=== PATIENT | female | born 1980 | race Caucasian/White ===

== ENCOUNTER 2017-07-27 16:11 | Emergency (ER) | payer MEDICAID ==
[~2017-07-27] VITALS: Ht 170.2 cm; Wt 93.0 kg
[2017-07-27 16:18] VITALS: BP 133/84
[2017-07-27] MEDS ORDERED: NYST30CR2 TP (16:28)
[2017-07-27] MEDS ORDERED: CEPH500C5 PO (16:28)
== END 2017-07-27 16:51 | disposition home or self-care (01) ==
LOC: ER 16:13
DX: L03.032 Cellulitis of left toe (principal); B35.3 Tinea pedis; Z88.0 Allergy status to penicillin
CPT/HCPCS: 99283

== ENCOUNTER 2018-07-25 05:41 | Day surgery (SDC) | payer MEDICAID ==
[2018-07-23 15:45] LABS: BASOPHILS % (AUTO) 0.6 % (0-1); EOSINOPHILS # (AUTO) 0.3 X10'3 (0-0.9); EOSINOPHILS % (AUTO) 3.4 % (0-6); LYMPHOCYTES # (AUTO) 2.7 X10'3 (1.1-4.8); LYMPHOCYTES % (AUTO) 33.9 % (21-51); MEAN CORPUSCULAR HEMOGLOBIN 31.5 PG (27.0-31.0); MEAN CORPUSCULAR VOLUME 92.6 FL (78-98); MEAN PLATELET VOLUME 8.4 FL (7.4-10.4); MONOCYTES # (AUTO) 0.6 X10'3 (0-0.9); MONOCYTES % (AUTO) 7.8 % (2-12); NEUTROPHILS # (AUTO) 4.3 X10'3 (1.8-7.7); NEUTROPHILS % (AUTO) 54.3 % (42-75); PRE OP HEMATOCRIT 41.6 % (35.0-45.0); PRE OP HEMOGLOBIN 14.1 g/dL (12.0-16.0); PRE OP PLATELET COUNT 264 X10'3 (140-440); RED BLOOD COUNT 4.49 X10'6 (4.20-5.60); RED CELL DISTRIBUTION WIDTH 13.1 % (11.5-14.5)
[2018-07-23 16:11] LABS: HCG SERUM QL NEGATIVE
[2018-07-23 16:13] LABS: ALANINE AMINOTRANSFERASE 26 U/L (12-78); ALBUMIN 3.8 G/DL (3.4-5.0); ALBUMIN/GLOBULIN RATIO 1.1 (1.1-1.5); ALKALINE PHOSPHATASE 54 IU/L (46-116); ANION GAP 5 (8-16); ASPARTATE AMINO TRANSFERASE 13 U/L (10-37); BILIRUBIN,TOTAL 0.4 MG/DL (0.1-1.0); BLOOD UREA NITROGEN 17 MG/DL (7-18); BUN/CREATININE RATIO 25.4 (6.6-38.0); CALCIUM 8.7 MG/DL (8.5-10.1); CHLORIDE 105 MMOL/L (99-107); CREATININE 0.67 MG/DL (0.40-0.90); GLUCOSE 79 MG/DL (70-104); POTASSIUM 3.9 MMOL/L (3.5-5.1); SODIUM 138 MMOL/L (135-145); TOTAL CARBON DIOXIDE 28.1 MMOL/L (24-32); TOTAL PROTEIN 7.3 G/DL (6.4-8.2); eGFR > 90 ML/MIN
[2018-07-25] VITALS (9 sets, daily range): BP systolic 121–163; BP diastolic 71–106
[~2018-07-25] VITALS: Ht 172.7 cm; Wt 100.0 kg
[~2018-07-25 05:41] MED LIST: LISI1TAB9 PO; albuterol 2.5 MG/3 ML nebule NEB ONE; famotidine 20mg tablet PO ONE; ringers solution, lacted 1,000 ML IV SCH
[2018-07-25] MEDS ORDERED: fentaNYL/PF 50MCG/1 ML 2ML syringe ONE ×2 (07:30→08:23)
[2018-07-25] MEDS ORDERED: midazolam 2 mg/2 ml injection ONE (07:30)
--- NOTE | 2018-07-25 08:35 | NUR ---
Received from OR via BED , accompanied by Anesthesiologist DR RITTER and report given by Anesthesiolgist. PATIENT WAKING UP, DENIES, V/S WNL, NEUROVASCULAR CHECKS INTACT, 20G PIV LUE, SCD ON, DEMABONDED TO LAP SIGHTS OF ABDOMEN AND WITH PERIPAD WITH SCANT DRAINAGE CDI.
[2018-07-25] MEDS ORDERED: LIDOcaine 2% (20mg/ml) 5ml vial ONE (08:43)
[2018-07-25] MEDS ORDERED: hydrALAZINE 20mg/ml inj. IV ONE (08:43)
[2018-07-25] MEDS ORDERED: dexamethasone sod phosphate 4mg/ml inj. ONE (08:43)
[2018-07-25] MEDS ORDERED: labetalol 20mg/4ml (5mg/ml) syringe IV ONE (08:43)
[2018-07-25] MEDS ORDERED: neostigmine methylsulfate 1 MG/ML 10ml vial ONE (08:43)
[2018-07-25] MEDS ORDERED: glycopyrrolate 0.2mg/ml inj ONE (08:43)
[2018-07-25] MEDS ORDERED: ondansetron/PF 4mg/2ml inj ONE (08:43)
[2018-07-25] MEDS ORDERED: rocuronium 10mg/ml inj IV ONE (08:43)
[2018-07-25] MEDS ORDERED: propofol inj 20 ML IV ONE (08:43)
[2018-07-25] MEDS ORDERED: meperidine/PF 25mg/ml syringe ONE (08:44)
[2018-07-25] MEDS ORDERED: ringers solution, lacted 1,000 ML IV SCH (08:48)
[2018-07-25] MEDS ORDERED: ondansetron/PF 4mg/2ml inj IV PRN (08:50)
[2018-07-25] MEDS ORDERED: meperidine/PF 25mg/ml syringe IV PRN ×3 (08:50)
[2018-07-25] MEDS ORDERED: morphine 4 MG/ML inj SYRINge IV PRN ×2 (08:50)
[2018-07-25] MEDS ORDERED: proCHLORperazine 10 MG/2 ml inj IV PRN (08:50)
--- NOTE | 2018-07-25 09:35 | NUR ---
PATIENT A&OX4, DENIES PAIN, V/S WNL, NEUROVASCULAR CHECKS INTACT, 20G PIV LUE D/C, SCD OFF, DERMABONDED TO LAP SIGHTS OF ABDOMEN AND WITH PERIPAD WITH SCANT DRAINAGE CDI.I HAVE REVIEWED D/C INSTRUCTIONS WITH PATIENT AND FAMILY AND THEY HAVE VERBALIZED UNDERSTANDING. PATIENT D/C HOME WITH FAMILY TO TRANSPORT AND ALL BELONGINGS..
== END 2018-07-25 09:35 | disposition home or self-care (01) ==
LOC: PAS 05:41
PROVIDERS: ATTEND Obstetrics & Gynecology
DX: Z30.2 Encounter for sterilization (principal); I10 Essential (primary) hypertension; F17.210 Nicotine dependence, cigarettes, uncomplicated; F43.10 Post-traumatic stress disorder, unspecified; Z88.0 Allergy status to penicillin; Z88.8 Allergy status to other drugs, medicaments and biological substances; Z79.899 Other long term (current) drug therapy
CPT/HCPCS: 36415; 58670; 80053; 84703; 85025; 93005; J0360; J1100; J2001; J2175; J2250; J2405; J2704; J2710; J3010; J7120; A7000; J3490

== ENCOUNTER 2022-07-26 16:27 | Emergency (ER) | payer MEDICAID ==
[~2022-07-26] VITALS: Ht 170.2 cm; Wt 100.0 kg
[~2022-07-26 16:27] MED LIST changes: +LISI1TAB49 PO; -LISI1TAB9 PO; -albuterol 2.5 MG/3 ML nebule NEB ONE; -famotidine 20mg tablet PO ONE; -ringers solution, lacted 1,000 ML IV SCH
[2022-07-26 17:04] VITALS: BP 131/85
[2022-07-26] MEDS ORDERED: PRED20TA PO (17:19)
[2022-07-26] MEDS ORDERED: KEN0.1O TP (17:19)
[2022-07-26] MEDS ORDERED: triamcinolone acetonide 40mg/ml inj IM ONE (17:20)
== END 2022-07-26 17:50 | disposition home or self-care (01) ==
LOC: ER 16:29
DX: L23.7 Allergic contact dermatitis due to plants, except food (principal); Z88.0 Allergy status to penicillin; Z88.8 Allergy status to other drugs, medicaments and biological substances; Z79.899 Other long term (current) drug therapy
CPT/HCPCS: 96372; 99283; J3301

== ENCOUNTER 2023-05-22 12:16 | Emergency (ER) | payer MEDICAID ==
[~2023-05-22] VITALS: Ht 170.2 cm; Wt 101.8 kg
[2023-05-22 12:34] VITALS: BP 139/80; PULSE 74; O2SAT 98
[2023-05-22] MEDS ORDERED: ketorolac trometh. 30mg/ml inj. IM ONE (13:35)
[2023-05-22] MEDS: ketorolac tromethamine 15mg/ml inj. IM ONE (13:51)
[2023-05-22] MEDS: orphenadrine citrate 60mg/2ml inj. IM ONE (13:55)
[2023-05-22 14:07] VITALS: RESP 16
[2023-05-22] MEDS ORDERED: NAPR-56 PO (14:25)
[2023-05-22] MEDS ORDERED: LIDO700A47 TOP (14:25)
[2023-05-22] MEDS ORDERED: CYCL-394 PO (14:25)
[2023-05-22 14:37] VITALS: TEMP 98
== END 2023-05-22 14:40 | disposition home or self-care (01) ==
LOC: ER 12:17
DX: M54.50 Low back pain, unspecified (principal); Z88.0 Allergy status to penicillin; Z88.8 Allergy status to other drugs, medicaments and biological substances; Z79.899 Other long term (current) drug therapy
CPT/HCPCS: 72100; 96372; 99283; J1885

== ENCOUNTER 2023-06-21 10:36 | Outpatient (CLI) | payer MEDICAID ==
[~2023-06-21 10:36] MED LIST changes: +LIDO700A47 TOP; +NAPR-56 PO
== END 2023-06-21 23:59 | disposition home or self-care (01) ==
LOC: MRI 10:36
PROVIDERS: ATTEND Family Medicine
DX: M51.27 Other intervertebral disc displacement, lumbosacral region (principal); M47.817 Spondylosis without myelopathy or radiculopathy, lumbosacral region; M48.07 Spinal stenosis, lumbosacral region; M43.16 Spondylolisthesis, lumbar region
CPT/HCPCS: 72148

== ENCOUNTER 2023-08-11 22:08 | Emergency (ER) | payer MEDICAID ==
[~2023-08-11] VITALS: Ht 170.2 cm; Wt 90.9 kg
[2023-08-11 23:12] LABS: URINE HCG NEGATIVE (NEG)
[2023-08-11 23:13] LABS: BASOPHILS % (AUTO) 0.4 % (0-1); EOSINOPHILS # (AUTO) 0.1 X10'3 (0-0.9); HEMATOCRIT 42.2 % (35.0-45.0); HEMOGLOBIN 14.5 g/dl (12.0-16.0); LYMPHOCYTES # (AUTO) 1.6 X10'3 (1.1-4.8); LYMPHOCYTES % (AUTO) 23.1 % (21-51); MEAN CORPUSCULAR HEMOGLOBIN 31.6 PG (27.0-31.0); MEAN CORPUSCULAR HGB CONC 34.4 g/dL (33.0-36.5); MEAN CORPUSCULAR VOLUME 91.7 FL (78-98); MEAN PLATELET VOLUME 8.5 FL (7.4-10.4); MONOCYTES # (AUTO) 0.4 X10'3 (0-0.9); MONOCYTES % (AUTO) 5.6 % (2-12); NEUTROPHILS # (AUTO) 4.9 X10'3 (1.8-7.7); NEUTROPHILS % (AUTO) 69.9 % (42-75); PLATELET COUNT 245 X10'3 (140-440); RED BLOOD COUNT 4.61 X10'6 (4.20-5.60); RED CELL DISTRIBUTION WIDTH 13.3 % (11.5-14.5); WHITE BLOOD COUNT 6.9 X10'3 (4.5-11.0)
[2023-08-11 23:16] LABS: BILIRUBIN,URINE NEGATIVE (Neg); CLARITY,URINE SLIGHTLY CLOUDY (Clear); COLOR,URINE YELLOW (Yellow); GLUCOSE, URINE NEGATIVE (Neg); KETONES,URINE NEGATIVE (Neg); LEUKOCYTE ESTERASE ,URINE NEGATIVE (Neg); NITRITES, URINE NEGATIVE (Neg); OCCULT BLOOD,URINE NEGATIVE (Neg); PROTEIN,URINE TRACE mg/dl (Neg)
[2023-08-11 23:17] LABS: UA COLLECTION TYPE CLN CATCH MIDSTREAM
[2023-08-11 23:23] LABS: ALANINE AMINOTRANSFERASE 22 U/L (12-78); ALBUMIN 3.9 G/DL (3.4-5.0); ALBUMIN/GLOBULIN RATIO 1.2 (1.1-1.5); ALKALINE PHOSPHATASE 43 IU/L (46-116); ANION GAP 11 (8-16); ASPARTATE AMINO TRANSFERASE 8 U/L (10-37); BILIRUBIN,TOTAL 0.7 MG/DL (0.1-1.0); BLOOD UREA NITROGEN 11 MG/DL (7-18); BUN/CREATININE RATIO 15.5 (10.0-20.0); CALCIUM 8.5 MG/DL (8.5-10.1); CHLORIDE 99 MMOL/L (99-107); CREATININE 0.71 MG/DL (0.40-0.90); GLUCOSE 94 MG/DL (70-104); LIPASE 17 U/L (16-77); POTASSIUM 3.5 MMOL/L (3.5-5.1); SODIUM 135 MMOL/L (135-145); TOTAL CARBON DIOXIDE 25.2 MMOL/L (24-32); TOTAL PROTEIN 7.2 G/DL (6.4-8.2); eCRCL 97 ML/MIN; eGFR 89 ML/MIN
[2023-08-11] MEDS: ondansetron/PF 4mg/2ml inj IV ONE (23:25)
[2023-08-11] MEDS: normal saline 1000ML IV soln IVB ONE (23:25)
[2023-08-11 23:30] LABS: ETHANOL < 10 MG/DL (<10)
[2023-08-11 23:36] LABS: BACTERIA,URINE FEW /HPF (Neg); RBC,URINE NONE SEEN /HPF (0-2); WBC,URINE 0-4 /HPF (0-4)
[2023-08-11 23:37] LABS: MUCUS STRANDS MANY /LPF (Neg); SQUAMOUS EPITHELIAL CELL,UR FEW /LPF (FEW)
[2023-08-12] MEDS ORDERED: ONDA8TAB13 PO (00:17)
[2023-08-12 00:38] VITALS: BP 111/75; PULSE 66; RESP 14; TEMP 98.4; O2SAT 96
== END 2023-08-12 00:40 | disposition home or self-care (01) ==
LOC: ER 22:09
DX: R11.2 Nausea with vomiting, unspecified (principal); Z20.822 Contact with and (suspected) exposure to COVID-19; I10 Essential (primary) hypertension; E78.00 Pure hypercholesterolemia, unspecified; Z88.0 Allergy status to penicillin; Z88.8 Allergy status to other drugs, medicaments and biological substances; Z79.899 Other long term (current) drug therapy
CPT/HCPCS: 36415; 80053; 80320; 81001; 81025; 83690; 85025; 87502; 87503; 87811; 96374; 99283; J2405; J7030; 96361

== ENCOUNTER 2023-09-20 22:01 | Inpatient (IN) | payer MEDICAID ==
[~2023-09-20] VITALS: Ht 170.2 cm; Wt 90.9 kg
[~2023-09-20 22:01] MED LIST changes: +ONDA-245 PO
[2023-09-20 22:51] LABS: BASOPHILS # (AUTO) 0.1 X10'3 (0-0.2); BASOPHILS % (AUTO) 0.6 % (0-1); EOSINOPHILS # (AUTO) 0.3 X10'3 (0-0.9); EOSINOPHILS % (AUTO) 2.4 % (0-6); HEMATOCRIT 43.8 % (35.0-45.0); HEMOGLOBIN 14.6 g/dl (12.0-16.0); LYMPHOCYTES # (AUTO) 2.3 X10'3 (1.1-4.8); LYMPHOCYTES % (AUTO) 20.5 % (21-51); MEAN CORPUSCULAR HEMOGLOBIN 31.1 PG (27.0-31.0); MEAN CORPUSCULAR HGB CONC 33.3 g/dL (33.0-36.5); MEAN CORPUSCULAR VOLUME 93.4 FL (78-98); MEAN PLATELET VOLUME 8.2 FL (7.4-10.4); MONOCYTES # (AUTO) 0.6 X10'3 (0-0.9); MONOCYTES % (AUTO) 5.4 % (2-12); NEUTROPHILS # (AUTO) 8.2 X10'3 (1.8-7.7); NEUTROPHILS % (AUTO) 71.1 % (42-75); PLATELET COUNT 293 X10'3 (140-440); RED BLOOD COUNT 4.69 X10'6 (4.20-5.60); RED CELL DISTRIBUTION WIDTH 14.2 % (11.5-14.5); WHITE BLOOD COUNT 11.5 X10'3 (4.5-11.0)
[2023-09-20 22:57] LABS: BILIRUBIN,URINE MODERATE (Neg); CLARITY,URINE CLEAR (Clear); GLUCOSE, URINE 100 mg/dl (Neg); KETONES,URINE TRACE mg/dl (Neg); LEUKOCYTE ESTERASE ,URINE NEGATIVE (Neg); OCCULT BLOOD,URINE NEGATIVE (Neg); PH,URINE 5.5 (4.8-8.0); PROTEIN,URINE TRACE mg/dl (Neg)
[2023-09-20 23:03] LABS: ALANINE AMINOTRANSFERASE 285 U/L (12-78); ALKALINE PHOSPHATASE 196 IU/L (46-116); ANION GAP 11 (8-16); ASPARTATE AMINO TRANSFERASE 207 U/L (10-37); BILIRUBIN,TOTAL 2.6 MG/DL (0.1-1.0); BLOOD UREA NITROGEN 11 MG/DL (7-18); CALCIUM 9.5 MG/DL (8.5-10.1); CHLORIDE 100 MMOL/L (99-107); CREATININE 0.92 MG/DL (0.40-0.90); GLUCOSE 112 MG/DL (70-104); LIPASE 283 U/L (16-77); POTASSIUM 3.8 MMOL/L (3.5-5.1); SODIUM 137 MMOL/L (135-145); TOTAL CARBON DIOXIDE 26.1 MMOL/L (24-32); TOTAL PROTEIN 8.1 G/DL (6.4-8.2); eCRCL 75 ML/MIN; eGFR 66 ML/MIN
[2023-09-20 23:07] LABS: BILIRUBIN,DIRECT 1.4 MG/DL (0-0.3)
[2023-09-20 23:19] LABS: COLOR,URINE DARK YELLOW (Yellow); NITRITES, URINE NEGATIVE (Neg); UA COLLECTION TYPE NON-SPECIFIED
[2023-09-20 23:21] LABS: BACTERIA,URINE FEW /HPF (Neg); CAL OXALATE CRYSTALS 2+ /HPF (NEGATIVE); RBC,URINE 0-2 /HPF (0-2); SQUAMOUS EPITHELIAL CELL,UR FEW /LPF (FEW); WBC,URINE 0-4 /HPF (0-4)
[2023-09-20] MEDS ORDERED: SEMA1PEN3 SUBCUT (23:40)
[2023-09-20] MEDS: morphine 2 MG/ML inj. syringe IV ONE (23:41)
[2023-09-20] MEDS: normal saline 1000ML IV soln IVB ONE (23:42)
[2023-09-20] MEDS: ondansetron/PF 4mg/2ml inj IV ONE (23:51)
[2023-09-21] MEDS ORDERED: magnesium Cl slow-release 64mg tablet PO PRN
[2023-09-21] MEDS ORDERED: acetaminophen 325mg tablet PO PRN
[2023-09-21] MEDS ORDERED: magnesium sulf-water 2g/50mL 50 ML IV PRN
[2023-09-21] MEDS ORDERED: magnesium sulf-water 4G/100mL 100 ML IV PRN
[2023-09-21] MEDS ORDERED: ondansetron/PF 4mg/2ml inj IV PRN
[2023-09-21] MEDS ORDERED: mag hydrox/Alum hydrox/simeth 30ml oral suspension PO PRN
[2023-09-21] MEDS ORDERED: potassium Cl 40MEQ/1/2NS 520ml 520 ML IV PRN
[2023-09-21] MEDS ORDERED: potassium Cl 20 mEq SR tablet PO PRN ×2
[2023-09-21] MEDS: ringers solution, lacted 1,000 ML IV ONE (00:58)
[2023-09-21] MEDS: ringers solution, lacted 1,000 ML IV SCH (00:59)
[2023-09-21 01:06] LABS: AMYLASE 83 U/L (25-115); C-REACTIVE PROTEIN 1.69 MG/DL (0.0-0.5); CHOL/HDL RATIO 3.4 (0.00-4.99); CHOLESTEROL 162 MG/DL (0-200); HDL CHOLESTEROL 48 MG/DL (35-60); LDL CHOLESTEROL 86 MG/DL (50-100); TRIGLYCERIDES 93 MG/DL (20-135)
[2023-09-21] MEDS: metoclopramide 5 mg/ml inj IV SCH (02:00)
[2023-09-21] MEDS: morphine 2 MG/ML inj. syringe IV SCH (02:00)
[2023-09-21 02:44] LABS: MAGNESIUM 1.8 MG/DL (1.5-2.4); POTASSIUM 4.2 MMOL/L (3.5-5.1)
[2023-09-21 05:00] VITALS: BP 122/78; PULSE 58; RESP 16; TEMP 97.8; O2SAT 97
[2023-09-21] MEDS ORDERED: ATOR20TA66 PO (06:00)
[2023-09-21] MEDS: K and/or MAG REPLACEMENT MC SCH (07:58)
[2023-09-21] MEDS: docusate sod 100mg capsule PO SCH (07:59)
[2023-09-21] MEDS: HYDROchlorothiazide 12.5mg capsule PO SCH (08:00)
[2023-09-21] MEDS: lisinopril 10 MG tablet PO SCH (08:00)
[2023-09-21] MEDS: LIDOcaine 5% patch TP SCH (08:00)
[2023-09-21 08:29] LABS: BASOPHILS % (AUTO) 0.5 % (0-1); EOSINOPHILS # (AUTO) 0.3 X10'3 (0-0.9); EOSINOPHILS % (AUTO) 4.4 % (0-6); HEMATOCRIT 37.6 % (35.0-45.0); HEMOGLOBIN 12.7 g/dl (12.0-16.0); LYMPHOCYTES # (AUTO) 2.3 X10'3 (1.1-4.8); LYMPHOCYTES % (AUTO) 32.5 % (21-51); MEAN CORPUSCULAR HEMOGLOBIN 31.3 PG (27.0-31.0); MEAN CORPUSCULAR HGB CONC 33.6 g/dL (33.0-36.5); MEAN CORPUSCULAR VOLUME 92.9 FL (78-98); MEAN PLATELET VOLUME 8.2 FL (7.4-10.4); MONOCYTES # (AUTO) 0.5 X10'3 (0-0.9); MONOCYTES % (AUTO) 7.3 % (2-12); NEUTROPHILS # (AUTO) 3.9 X10'3 (1.8-7.7); NEUTROPHILS % (AUTO) 55.3 % (42-75); PLATELET COUNT 243 X10'3 (140-440); RED BLOOD COUNT 4.05 X10'6 (4.20-5.60); RED CELL DISTRIBUTION WIDTH 13.7 % (11.5-14.5); WHITE BLOOD COUNT 7.1 X10'3 (4.5-11.0)
[2023-09-21 08:39] LABS: ALANINE AMINOTRANSFERASE 265 U/L (12-78); ALBUMIN 3.2 G/DL (3.4-5.0); ALKALINE PHOSPHATASE 182 IU/L (46-116); ANION GAP 5 (8-16); ASPARTATE AMINO TRANSFERASE 202 U/L (10-37); BILIRUBIN,TOTAL 2.9 MG/DL (0.1-1.0); BLOOD UREA NITROGEN 8 MG/DL (7-18); BUN/CREATININE RATIO 12.7 (10.0-20.0); CALCIUM 8.7 MG/DL (8.5-10.1); CHLORIDE 105 MMOL/L (99-107); CREATININE 0.63 MG/DL (0.40-0.90); GLUCOSE 94 MG/DL (70-104); LIPASE 113 U/L (16-77); POTASSIUM 4.1 MMOL/L (3.5-5.1); SODIUM 138 MMOL/L (135-145); TOTAL CARBON DIOXIDE 28.4 MMOL/L (24-32); TOTAL PROTEIN 6.5 G/DL (6.4-8.2); eCRCL 110 ML/MIN; eGFR > 90 ML/MIN
[2023-09-21 09:00] VITALS: RESP 18; O2SAT 98
[2023-09-21 10:00] VITALS: BP 129/81; PULSE 61; RESP 18; TEMP 97.2; O2SAT 98
[2023-09-21] MEDS ORDERED: iohexol 300mg/ml 100ml inj. ONE (10:36)
[2023-09-21] MEDS ORDERED: morphine 2 MG/ML inj. syringe IV PRN (13:45)
[2023-09-21] MEDS ORDERED: metoclopramide 5 mg/ml inj IV PRN (13:45)
[2023-09-21] MEDS: levoFLOXACIN-Levaquin 750MG/D5 150 ML IV SCH (14:16)
[2023-09-21] MEDS: morphine 2 MG/ML inj. syringe IV PRN (14:53)
[2023-09-21] MEDS: metroNIDAZOLE-Flagyl 500mg/NS 100 ML IV SCH (16:30)
[2023-09-21 18:00] VITALS: BP 116/75; PULSE 58; RESP 16; TEMP 97.4; O2SAT 100
[2023-09-21 20:00] VITALS: RESP 16; O2SAT 100
[2023-09-21] MEDS: HYDROmorphone 1 mg/ml syringe IV PRN (20:09)
[2023-09-21 22:00] VITALS: BP 135/76; PULSE 60; RESP 16; TEMP 97.4; O2SAT 96
[2023-09-22] VITALS (20 sets, daily range): BP systolic 108–151; BP diastolic 47–86; PULSE 51–86; RESP 12–20; TEMP 97.1–98.4; O2SAT 90–98
[2023-09-22 05:59] LABS: BASOPHILS % (AUTO) 0.8 % (0-1); EOSINOPHILS # (AUTO) 0.3 X10'3 (0-0.9); EOSINOPHILS % (AUTO) 6.4 % (0-6); HEMATOCRIT 37.1 % (35.0-45.0); HEMOGLOBIN 12.2 g/dl (12.0-16.0); LYMPHOCYTES # (AUTO) 1.9 X10'3 (1.1-4.8); LYMPHOCYTES % (AUTO) 34.5 % (21-51); MEAN CORPUSCULAR HEMOGLOBIN 30.8 PG (27.0-31.0); MEAN CORPUSCULAR VOLUME 93.2 FL (78-98); MEAN PLATELET VOLUME 8.1 FL (7.4-10.4); MONOCYTES # (AUTO) 0.4 X10'3 (0-0.9); MONOCYTES % (AUTO) 7.1 % (2-12); NEUTROPHILS # (AUTO) 2.8 X10'3 (1.8-7.7); NEUTROPHILS % (AUTO) 51.2 % (42-75); PLATELET COUNT 236 X10'3 (140-440); RED BLOOD COUNT 3.98 X10'6 (4.20-5.60); RED CELL DISTRIBUTION WIDTH 13.6 % (11.5-14.5); WHITE BLOOD COUNT 5.5 X10'3 (4.5-11.0)
[2023-09-22 06:08] LABS: ALBUMIN 3.1 G/DL (3.4-5.0); ANION GAP 5 (8-16); BILIRUBIN,TOTAL 1.2 MG/DL (0.1-1.0); BLOOD UREA NITROGEN 5 MG/DL (7-18); BUN/CREATININE RATIO 8.9 (10.0-20.0); CALCIUM 8.6 MG/DL (8.5-10.1); CHLORIDE 103 MMOL/L (99-107); CREATININE 0.56 MG/DL (0.40-0.90); GLUCOSE 86 MG/DL (70-104); MAGNESIUM 1.6 MG/DL (1.5-2.4); POTASSIUM 3.8 MMOL/L (3.5-5.1); SODIUM 136 MMOL/L (135-145); TOTAL CARBON DIOXIDE 27.9 MMOL/L (24-32); TOTAL PROTEIN 6.4 G/DL (6.4-8.2); eCRCL 123 ML/MIN; eGFR > 90 ML/MIN
[2023-09-22 06:09] LABS: ALANINE AMINOTRANSFERASE 193 U/L (12-78); ALBUMIN/GLOBULIN RATIO 0.9 (1.1-1.5); ALKALINE PHOSPHATASE 155 IU/L (46-116); ASPARTATE AMINO TRANSFERASE 75 U/L (10-37); LIPASE 29 U/L (16-77)
[2023-09-22] MEDS ORDERED: hydrALAZINE 20mg/ml inj. IV PRN (10:00)
[2023-09-22] MEDS ORDERED: meperidine/PF 25mg/ml syringe IV PRN ×2 (10:00)
[2023-09-22] MEDS ORDERED: morphine 4 MG/ML inj SYRINge IV PRN (10:00)
[2023-09-22] MEDS ORDERED: morphine 2 MG/ML inj. syringe IV PRN (10:00)
[2023-09-22] MEDS ORDERED: ondansetron/PF 4mg/2ml inj IV PRN (10:00)
[2023-09-22] MEDS: acetaminophen 1,000mg/100ml IV 100 ML IV ONE (10:00)
[2023-09-22] MEDS ORDERED: proCHLORperazine 10 MG/2 ml inj IV PRN (10:00)
[2023-09-22] MEDS ORDERED: labetalol 20mg/4ml (5mg/ml) syringe IV PRN (10:00)
[2023-09-22] MEDS: ringers solution, lacted 1,000 ML IV SCH (10:00)
[2023-09-22] MEDS ORDERED: sevoflurane 250ml liquid IH ONE (10:01)
[2023-09-22 10:03] LABS: PREOP URINE HCG NEGATIVE (NEGATIVE)
[2023-09-22] MEDS ORDERED: midazolam 1 mg/ML 2ml injection ONE (10:11)
[2023-09-22] MEDS ORDERED: propofol inj 20 ML IV ONE (10:39)
[2023-09-22] MEDS ORDERED: rocuronium 10mg/ml inj IV ONE (10:39)
[2023-09-22] MEDS ORDERED: ondansetron/PF 4mg/2ml inj ONE (10:39)
[2023-09-22] MEDS ORDERED: ceFOXitin 1000 MG inj ONE ×2 (10:39)
[2023-09-22] MEDS ORDERED: fentaNYL /PF 50mcg/ml 5ml ampule ONE (10:39)
[2023-09-22] MEDS ORDERED: LIDOcaine 2% (20mg/ml) 5ml vial ONE (10:39)
[2023-09-22] MEDS ORDERED: dexamethasone sod phosphate 4mg/ml inj. ONE (10:39)
[2023-09-22] MEDS: BUPIVAcaine 2.5mg/ml inj 50ml vial (contains preservative) ONE (10:45)
[2023-09-22] MEDS ORDERED: labetalol 20mg/4ml (5mg/ml) syringe IV ONE (10:46)
[2023-09-22] MEDS ORDERED: glycopyrrolate 0.2mg/ml inj ONE (11:31)
[2023-09-22] MEDS ORDERED: neostigmine methylsulfate 1 MG/ML 10ml vial ONE (11:31)
[2023-09-22] MEDS: meperidine/PF 25mg/ml syringe IV PRN (11:52)
[2023-09-22] MEDS ORDERED: naloxone 0.4 mg/ml inj IV PRN (12:05)
[2023-09-22] MEDS: ketorolac trometh. 30mg/ml inj. IV ONE (12:07)
[2023-09-22] MEDS: HYDROcodone/acetaminophen 5mg/325mg tablet PO PRN (12:24)
[2023-09-22] MEDS: ketorolac trometh. 30mg/ml inj. IV PRN (16:36)
[2023-09-23 02:00] VITALS: BP 137/75; PULSE 54; RESP 14; TEMP 97.8; O2SAT 100
[2023-09-23 06:20] LABS: BASOPHILS % (AUTO) 0.1 % (0-1); EOSINOPHILS % (AUTO) 0.1 % (0-6); HEMATOCRIT 34.9 % (35.0-45.0); HEMOGLOBIN 11.7 g/dl (12.0-16.0); LYMPHOCYTES # (AUTO) 1.8 X10'3 (1.1-4.8); LYMPHOCYTES % (AUTO) 14.2 % (21-51); MEAN CORPUSCULAR HEMOGLOBIN 31.1 PG (27.0-31.0); MEAN CORPUSCULAR HGB CONC 33.5 g/dL (33.0-36.5); MEAN PLATELET VOLUME 8.4 FL (7.4-10.4); MONOCYTES # (AUTO) 0.7 X10'3 (0-0.9); MONOCYTES % (AUTO) 5.8 % (2-12); NEUTROPHILS % (AUTO) 79.8 % (42-75); PLATELET COUNT 231 X10'3 (140-440); RED BLOOD COUNT 3.75 X10'6 (4.20-5.60); RED CELL DISTRIBUTION WIDTH 13.6 % (11.5-14.5); WHITE BLOOD COUNT 12.5 X10'3 (4.5-11.0)
[2023-09-23 06:39] LABS: ALANINE AMINOTRANSFERASE 132 U/L (12-78); ALBUMIN 2.9 G/DL (3.4-5.0); ALBUMIN/GLOBULIN RATIO 0.9 (1.1-1.5); ALKALINE PHOSPHATASE 121 IU/L (46-116); ANION GAP 8 (8-16); ASPARTATE AMINO TRANSFERASE 34 U/L (10-37); BILIRUBIN,TOTAL 0.7 MG/DL (0.1-1.0); BLOOD UREA NITROGEN 5 MG/DL (7-18); BUN/CREATININE RATIO 10.9 (10.0-20.0); CALCIUM 8.7 MG/DL (8.5-10.1); CHLORIDE 102 MMOL/L (99-107); CREATININE 0.46 MG/DL (0.40-0.90); GLUCOSE 113 MG/DL (70-104); LIPASE 14 U/L (16-77); MAGNESIUM 1.5 MG/DL (1.5-2.4); POTASSIUM 3.6 MMOL/L (3.5-5.1); SODIUM 136 MMOL/L (135-145); TOTAL CARBON DIOXIDE 25.9 MMOL/L (24-32); TOTAL PROTEIN 6.1 G/DL (6.4-8.2); eCRCL 150 ML/MIN; eGFR > 90 ML/MIN
[2023-09-23] MEDS: magnesium hydroxide 30ml (MOM) UD suspension PO PRN (09:13)
[2023-09-23 09:18] VITALS: RESP 16
[2023-09-23 10:14] VITALS: BP 132/77; PULSE 63; RESP 15; TEMP 97.8; O2SAT 95
[2023-09-23 13:39] VITALS: RESP 16
[2023-09-23] MEDS ORDERED: IBUP-1985 PO ×2 (16:01→16:04)
[2023-09-23] MEDS ORDERED: LEVO750T68 PO (16:01)
[2023-09-23] MEDS ORDERED: METR-159 PO (16:01)
== END 2023-09-23 16:51 | disposition home or self-care (01) | DRG 263 ==
LOC: ER 22:02 → ED HOLD 09-21 → ORTHO 4S 09-21 04:51
PROVIDERS: ADMIT Internal Medicine Critical Care Medicine; ATTEND Family Medicine
PROC: 8E0W4CZ Robotic Assisted Procedure of Trunk Region, Percutaneous Endoscopic Approach (ICD-10-PCS; 2023-09-22)
PROC: 0FT44ZZ Resection of Gallbladder, Percutaneous Endoscopic Approach (ICD-10-PCS; principal; 2023-09-22 10:01)
DX: K85.10 Biliary acute pancreatitis without necrosis or infection (principal); E66.9 Obesity, unspecified; E78.5 Hyperlipidemia, unspecified; I10 Essential (primary) hypertension; R74.01 Elevation of levels of liver transaminase levels; Z72.0 Tobacco use; Z68.31 Body mass index [BMI] 31.0-31.9, adult
CPT/HCPCS: 36415; 74018; 74177; 74181; 76700; 80048; 80053; 80061; 80076; 81001; 81025; 82150; 82948; 83605; 83690; 83735; 84132; 85025; 86140; 87040; 87081; 87811; 93005; 99285; A4215; A4615; A4618; A6258; A7000; G0378; J0131; J0694; J1100; J1170; J1885; J1956; J2175; J2250; J2270; J2405; J2704; J2710; J3010; J3490; J7030; J7120; Q9967

== ENCOUNTER 2023-10-30 18:42 | Inpatient (IN) | payer MEDICAID ==
[~2023-10-30] VITALS: Ht 170.2 cm; Wt 91.6 kg
[~2023-10-30 18:42] MED LIST changes: +ATOR20TA66 PO; +IBUP-1985 PO; -NAPR-56 PO
[2023-10-30 19:37] LABS: BASOPHILS # (AUTO) 0.1 X10'3 (0-0.2); BASOPHILS % (AUTO) 1.1 % (0-1); EOSINOPHILS # (AUTO) 0.3 X10'3 (0-0.9); EOSINOPHILS % (AUTO) 3.4 % (0-6); HEMATOCRIT 39.4 % (35.0-45.0); HEMOGLOBIN 12.9 g/dl (12.0-16.0); LYMPHOCYTES # (AUTO) 1.9 X10'3 (1.1-4.8); LYMPHOCYTES % (AUTO) 24.6 % (21-51); MEAN CORPUSCULAR HEMOGLOBIN 30.2 PG (27.0-31.0); MEAN CORPUSCULAR HGB CONC 32.6 g/dL (33.0-36.5); MEAN CORPUSCULAR VOLUME 92.6 FL (78-98); MEAN PLATELET VOLUME 7.8 FL (7.4-10.4); MONOCYTES # (AUTO) 0.6 X10'3 (0-0.9); MONOCYTES % (AUTO) 7.8 % (2-12); NEUTROPHILS # (AUTO) 4.8 X10'3 (1.8-7.7); NEUTROPHILS % (AUTO) 63.1 % (42-75); PLATELET COUNT 354 X10'3 (140-440); RED BLOOD COUNT 4.25 X10'6 (4.20-5.60); RED CELL DISTRIBUTION WIDTH 15.3 % (11.5-14.5); WHITE BLOOD COUNT 7.5 X10'3 (4.5-11.0)
[2023-10-30 19:50] LABS: ALANINE AMINOTRANSFERASE 168 U/L (12-78); ALBUMIN 3.8 G/DL (3.4-5.0); ALKALINE PHOSPHATASE 281 IU/L (46-116); ANION GAP 9 (8-16); ASPARTATE AMINO TRANSFERASE 96 U/L (10-37); BILIRUBIN,TOTAL 3.2 MG/DL (0.1-1.0); BLOOD UREA NITROGEN 8 MG/DL (7-18); BUN/CREATININE RATIO 11.8 (10.0-20.0); CHLORIDE 104 MMOL/L (99-107); CREATININE 0.68 MG/DL (0.40-0.90); GLUCOSE 96 MG/DL (70-104); LIPASE 37 U/L (16-77); POTASSIUM 3.8 MMOL/L (3.5-5.1); SODIUM 139 MMOL/L (135-145); TOTAL CARBON DIOXIDE 26.4 MMOL/L (24-32); TOTAL PROTEIN 7.7 G/DL (6.4-8.2); eCRCL 102 ML/MIN; eGFR > 90 ML/MIN
[2023-10-30 20:15] LABS: URINE HCG NEGATIVE (NEG)
[2023-10-30 20:17] LABS: BILIRUBIN,URINE LARGE (Neg); CLARITY,URINE SLIGHTLY CLOUDY (Clear); COLOR,URINE AMBER (Yellow); GLUCOSE, URINE 100 mg/dl (Neg); KETONES,URINE NEGATIVE (Neg); LEUKOCYTE ESTERASE ,URINE NEGATIVE (Neg); OCCULT BLOOD,URINE NEGATIVE (Neg); PH,URINE 5.5 (4.8-8.0); PROTEIN,URINE NEGATIVE (Neg)
[2023-10-30 20:19] LABS: NITRITES, URINE NEGATIVE (Neg); UA COLLECTION TYPE CLN CATCH MIDSTREAM
[2023-10-30 20:30] LABS: CAL OXALATE CRYSTALS 4+ /HPF (NEGATIVE); MUCUS STRANDS MANY /LPF (Neg); SQUAMOUS EPITHELIAL CELL,UR MODERATE /LPF (FEW)
[2023-10-30 20:31] LABS: BACTERIA,URINE 1+ /HPF (Neg); RBC,URINE 0-2 /HPF (0-2); WBC,URINE 0-4 /HPF (0-4)
[2023-10-30] MEDS ORDERED: iohexol 300mg/ml 100ml inj. ONE (21:10)
[2023-10-30] MEDS: pantoprazole 40 MG vial IV ONE (21:38)
[2023-10-30] MEDS: mag hydrox/Alum hydrox/simeth 30ml oral suspension PO ONE (21:38)
[2023-10-30] MEDS: LIDOcaine 2% Viscous 15ml cup MM ONE (21:38)
[2023-10-30] MEDS: famotidine/PF 10 mg/ml inj IV ONE (21:38)
[2023-10-31] MEDS ORDERED: HYDROcodone/acetaminophen 10/325mg tab PO PRN (01:50)
[2023-10-31] MEDS: normal saline 1000ml 1,000 ML IV SCH (01:50)
[2023-10-31] MEDS ORDERED: acetaminophen 325mg tablet PO PRN ×2 (01:50)
[2023-10-31] MEDS ORDERED: magnesium sulf-water 2g/50mL 50 ML IV PRN (01:50)
[2023-10-31] MEDS ORDERED: magnesium hydroxide 30ml (MOM) UD suspension PO PRN (01:50)
[2023-10-31] MEDS ORDERED: mag hydrox/Alum hydrox/simeth 30ml oral suspension PO PRN (01:50)
[2023-10-31] MEDS ORDERED: morphine 2 MG/ML inj. syringe IV PRN (01:50)
[2023-10-31] MEDS ORDERED: potassium Cl 20 mEq SR tablet PO PRN ×2 (01:50)
[2023-10-31] MEDS ORDERED: magnesium sulf-water 4G/100mL 100 ML IV PRN (01:50)
[2023-10-31] MEDS ORDERED: potassium Cl 40MEQ/1/2NS 520ml 520 ML IV PRN (01:50)
[2023-10-31] MEDS ORDERED: magnesium Cl slow-release 64mg tablet PO PRN (01:50)
[2023-10-31] MEDS: ondansetron/PF 4mg/2ml inj IV PRN (03:19)
[2023-10-31] MEDS: CefTRIAXone/D5W-Rocephin 1gm 50 ML IV ONE (03:20)
[2023-10-31] MEDS: morphine 2 MG/ML inj. syringe IV PRN (03:20)
[2023-10-31 03:24] LABS: PROTHROMBIN TIME 10.6 SECONDS (9.0-12.0)
[2023-10-31 06:00] VITALS: BP 155/75; PULSE 56; RESP 16; TEMP 97.9; O2SAT 99
[2023-10-31] MEDS: K and/or MAG REPLACEMENT MC SCH (07:51)
[2023-10-31] MEDS: docusate sod 100mg capsule PO SCH (07:51)
[2023-10-31] MEDS: pantoprazole 40 MG vial IV SCH (07:51)
[2023-10-31] MEDS: CefTRIAXone/D5W-Rocephin 1gm 50 ML IV SCH (09:56)
[2023-10-31 10:00] VITALS: BP 133/79; PULSE 56; RESP 16; TEMP 97.6; O2SAT 96
[2023-10-31] MEDS: metroNIDAZOLE-Flagyl 500mg/NS 100 ML IV SCH (16:57)
[2023-10-31 18:00] VITALS: BP 153/78; PULSE 68; RESP 18; TEMP 98.5; O2SAT 99
[2023-10-31 19:54] VITALS: RESP 18; O2SAT 99
[2023-10-31] MEDS: HYDROcodone/acetaminophen 5mg/325mg tablet PO PRN (20:12)
[2023-10-31 22:00] VITALS: BP 117/46; PULSE 62; RESP 17; TEMP 96.3; O2SAT 92
[2023-10-31] MEDS: diphenhydrAMINE 25mg capsule PO ONE (22:45)
[2023-11-01] VITALS (12 sets, daily range): BP systolic 104–160; BP diastolic 60–84; PULSE 49–62; RESP 10–19; TEMP 96.8–98; O2SAT 94–98
[2023-11-01 07:03] LABS: EOSINOPHILS # (AUTO) 0.2 X10'3 (0-0.9); HEMATOCRIT 32.9 % (35.0-45.0); LYMPHOCYTES # (AUTO) 1.4 X10'3 (1.1-4.8); MEAN PLATELET VOLUME 8.1 FL (7.4-10.4); MONOCYTES # (AUTO) 0.3 X10'3 (0-0.9); NEUTROPHILS # (AUTO) 2.2 X10'3 (1.8-7.7); NEUTROPHILS % (AUTO) 52.2 % (42-75); WHITE BLOOD COUNT 4.2 X10'3 (4.5-11.0)
[2023-11-01 07:05] LABS: PROTHROMBIN TIME 10.8 SECONDS (9.0-12.0)
[2023-11-01 07:07] LABS: BASOPHILS % (AUTO) 0.9 % (0-1); EOSINOPHILS % (AUTO) 5.3 % (0-6); HEMOGLOBIN 10.8 g/dl (12.0-16.0); LYMPHOCYTES % (AUTO) 34.2 % (21-51); MEAN CORPUSCULAR HEMOGLOBIN 30.7 PG (27.0-31.0); MEAN CORPUSCULAR HGB CONC 32.8 g/dL (33.0-36.5); MEAN CORPUSCULAR VOLUME 93.4 FL (78-98); MONOCYTES % (AUTO) 7.4 % (2-12); PLATELET COUNT 277 X10'3 (140-440); RED BLOOD COUNT 3.52 X10'6 (4.20-5.60); RED CELL DISTRIBUTION WIDTH 15.2 % (11.5-14.5)
[2023-11-01 07:10] LABS: ALANINE AMINOTRANSFERASE 106 U/L (12-78); ALBUMIN 2.9 G/DL (3.4-5.0); ALBUMIN/GLOBULIN RATIO 0.9 (1.1-1.5); ALKALINE PHOSPHATASE 222 IU/L (46-116); ANION GAP 7 (8-16); ASPARTATE AMINO TRANSFERASE 60 U/L (10-37); BILIRUBIN,TOTAL 1.3 MG/DL (0.1-1.0); BLOOD UREA NITROGEN 5 MG/DL (7-18); BUN/CREATININE RATIO 9.8 (10.0-20.0); CALCIUM 8.2 MG/DL (8.5-10.1); CHLORIDE 108 MMOL/L (99-107); CREATININE 0.51 MG/DL (0.40-0.90); GLUCOSE 103 MG/DL (70-104); MAGNESIUM 1.7 MG/DL (1.5-2.4); PHOSPHORUS 2.9 MG/DL (2.3-4.5); POTASSIUM 3.5 MMOL/L (3.5-5.1); SODIUM 138 MMOL/L (135-145); TOTAL CARBON DIOXIDE 22.8 MMOL/L (24-32); eCRCL 135 ML/MIN; eGFR > 90 ML/MIN
[2023-11-01] MEDS: HYDROchlorothiazide 12.5mg capsule PO SCH (07:25)
[2023-11-01] MEDS: lisinopril 10 MG tablet PO SCH (07:33)
[2023-11-01] MEDS ORDERED: fentaNYL/PF 50MCG/1 ML 2ML syringe ONE (10:55)
[2023-11-01] MEDS ORDERED: glucagon, human recombinant 1mg kit ONE (10:55)
[2023-11-01] MEDS ORDERED: MIDAZolam 1 MG/ML 5ML VIAL ONE (10:56)
[2023-11-01] MEDS ORDERED: iohexol 300mg/ml 100ml inj. ONE (10:56)
[2023-11-01] MEDS ORDERED: LIDOcaine 2% Viscous 15ml cup ONE (10:56)
[2023-11-01] MEDS ORDERED: proCHLORperazine 10 MG/2 ml inj ONE (11:02)
[2023-11-02 06:00] VITALS: BP 142/65; PULSE 67; RESP 16; TEMP 97.3; O2SAT 94
[2023-11-02 06:30] LABS: BASOPHILS % (AUTO) 0.8 % (0-1); EOSINOPHILS # (AUTO) 0.2 X10'3 (0-0.9); EOSINOPHILS % (AUTO) 3.7 % (0-6); HEMATOCRIT 33.4 % (35.0-45.0); HEMOGLOBIN 11.1 g/dl (12.0-16.0); LYMPHOCYTES # (AUTO) 1.7 X10'3 (1.1-4.8); LYMPHOCYTES % (AUTO) 33.5 % (21-51); MEAN CORPUSCULAR HEMOGLOBIN 30.5 PG (27.0-31.0); MEAN CORPUSCULAR HGB CONC 33.1 g/dL (33.0-36.5); MEAN CORPUSCULAR VOLUME 92.2 FL (78-98); MEAN PLATELET VOLUME 8.2 FL (7.4-10.4); MONOCYTES # (AUTO) 0.4 X10'3 (0-0.9); NEUTROPHILS # (AUTO) 2.7 X10'3 (1.8-7.7); PLATELET COUNT 277 X10'3 (140-440); RED BLOOD COUNT 3.62 X10'6 (4.20-5.60); RED CELL DISTRIBUTION WIDTH 15.1 % (11.5-14.5)
[2023-11-02 06:39] LABS: PROTHROMBIN TIME 10.9 SECONDS (9.0-12.0)
[2023-11-02 06:50] LABS: ALANINE AMINOTRANSFERASE 100 U/L (12-78); ALKALINE PHOSPHATASE 206 IU/L (46-116); ANION GAP 10 (8-16); ASPARTATE AMINO TRANSFERASE 61 U/L (10-37); BILIRUBIN,TOTAL 0.8 MG/DL (0.1-1.0); BLOOD UREA NITROGEN 1 MG/DL (7-18); BUN/CREATININE RATIO 2.2 (10.0-20.0); CALCIUM 8.4 MG/DL (8.5-10.1); CHLORIDE 107 MMOL/L (99-107); CREATININE 0.46 MG/DL (0.40-0.90); GLUCOSE 105 MG/DL (70-104); MAGNESIUM 1.6 MG/DL (1.5-2.4); PHOSPHORUS 3.1 MG/DL (2.3-4.5); POTASSIUM 3.3 MMOL/L (3.5-5.1); SODIUM 141 MMOL/L (135-145); TOTAL CARBON DIOXIDE 24.4 MMOL/L (24-32); TOTAL PROTEIN 6.1 G/DL (6.4-8.2); eCRCL 150 ML/MIN; eGFR > 90 ML/MIN
[2023-11-02 08:00] VITALS: RESP 16; O2SAT 94
[2023-11-02] MEDS: LIDOcaine 5% patch TP SCH (08:54)
[2023-11-02 10:00] VITALS: BP 146/80; PULSE 64; RESP 18; TEMP 98; O2SAT 97
[2023-11-02] MEDS ORDERED: METR-159 PO (15:21)
[2023-11-02] MEDS ORDERED: CEFD300C3 PO (15:21)
[2023-11-02] MEDS ORDERED: LACT1CAP26 PO (15:21)
[2023-11-02] MEDS ORDERED: IBUP-1985 PO (15:23)
== END 2023-11-02 16:15 | disposition home or self-care (01) ==
LOC: ER 18:43 → ED HOLD 10-31 01:55 → ORTHO 4S 10-31 05:30
PROVIDERS: ADMIT Internal Medicine Pulmonary Disease; ATTEND Family Medicine
PROC: 0F7C8ZZ Dilation of Ampulla of Vater, Via Natural or Artificial Opening Endoscopic (ICD-10-PCS; principal; 2023-11-01)
DX: K83.8 Other specified diseases of biliary tract (principal); K83.09 Other cholangitis; E78.00 Pure hypercholesterolemia, unspecified; I10 Essential (primary) hypertension; Z90.49 Acquired absence of other specified parts of digestive tract; Z88.0 Allergy status to penicillin; Z79.899 Other long term (current) drug therapy; Z98.51 Tubal ligation status; Z88.8 Allergy status to other drugs, medicaments and biological substances
CPT/HCPCS: 36415; 43262; 71046; 74177; 80053; 81001; 81025; 83690; 83735; 84100; 84132; 85025; 85610; 87081; 93005; 96374; 96375; 97116; 97161; 97530; 99152; 99285; A4620; C1769; G0378; J0696; J0780; J1610; J2250; J2270; J2405; J2470; J3010; J3490; J7030; Q0163; Q9967

== ENCOUNTER 2024-07-24 16:34 | Outpatient (CLI) | payer MEDICAID ==
[~2024-07-24 16:34] MED LIST changes: +CEFD300C3 PO; +LACT1CAP26 PO
--- NOTE | 2024-07-24 20:42 | RADIOLOGY REPORT ---
Procedure: CT CT LOWER EXTREMITY 07/24/2024 04:50 PM Indication: PAIN IN RIGHT FOOT;EVALUATE HALLUX BONE MASS RIGHT FOOT Comparison Study: None Technique: Axial images right foot were obtained and reformatted in coronal and sagittal planes. All CT scans at this medical facility are performed using dose modulation techniques as appropriate to a performed exam including the following: Automated exposure control was utilized; adjustment of the MA and/or KV according to patient size; and use of iterative reconstruction technique. CT Dose: CTDI vo lume is 0.14+ 14.36 mGy. Dose-length product is 405.48 mGy*cm FINDINGS: Normal mineralization and alignment. There are small plantar and dorsal calcaneal enthesophytes.. Corinne int spaces are preserved. There is no acute fracture. No focal osteopenia or cortical destruction to suggest osteomyelitis. There is a prominent calcified structure at the plantar aspect of the foot at the level of the 1st proximal phalanx measuring 1.9 x 1.3 x 1.7 cm on series 602, image 45 and series 2, image 85. There is no continuity with the adjacent bone. Muscle bundles in the right foot are int act. No discrete fluid collection or soft tissue gas. The visualized ligaments and tendons are grossl y intact although not optimally evaluated by CT. IMPRESSION: 1. Irregular calcified mass at the plantar aspect of the foot at the level of the 1st proximal phalan x. There is no communication with the adjacent bone. 2. No acute osseous abnormality.
== END 2024-07-24 23:59 | disposition home or self-care (01) ==
LOC: RAD 16:34
PROVIDERS: ATTEND Podiatrist Foot & Ankle Surgery
DX: M77.31 Calcaneal spur, right foot (principal); M79.671 Pain in right foot
CPT/HCPCS: 73700